=== PATIENT | male | born 1945 | race Caucasian/White ===

== ENCOUNTER 2016-06-09 19:07 | Emergency (ER) | payer MEDICARE, OTHER ==
--- OUTSIDE RECORDS SUMMARY | 2016-06-09 20:48 | XMS REPORT | Continuity of Care Document ---
:1945 Author Organization [facility] ([facility]) Address [address] [place] [address] Phone [phone] Care Team Providers Name Role Phone Ramsesgisela Chad Cornelius Primary Care Provider [phone] Source Comments This disclosure is being made pursuant to the Care Everywhere program, applicable federal and state laws, and may not contain all informaitonavailable regarding this patient.[facility] ([facility]) Active Allergies and Adverse Reactions Not on File Current Medications Not on file Active Problems Not on file Social History Tobacco Use Types Packs/Day Years Used Date Never Assessed Plan of Care Health Maintenance Due Date Last Done Comments HCV Screening 1945 Hepatitis B Vaccine (1 of 3 - Primary Series) 1945 Tdap Vaccine 1956 Lipid Disorder Screening 07/01/1963 Td Vaccine 07/01/1963 Colonoscopy 1995 Prostate Cancer Screening 07/01/1995 Zoster Vaccine 2005 Pneumococcal Vaccine (1 of 2 - PCV13) 2010 Influenza Vaccine: Seasonal (#1) 11/12/2015 Results from Last 3 Months Not on file
--- NOTE | 2016-06-09 20:53 | ERNOTE ---
ER Male HPI Stated Complaint: ARTIFICIAL SPHINCTER NOT WORKING ER Male: urinary retention Time Seen by Provider: 06/09/16 20:35 Source: patient Exam Limitations: no limitations Immunizations: IMMUNIZATION HX Immunizations Up to Date Yes History of Influenza Vaccine Yes Hx Pneumococcal Vaccination Yes Allergies/Adverse Reactions: Allergies No Known Allergies Allergy (Verified 04/05/16 21:24) Home Medications: HOME MEDICATIONS Albuterol Sulfate [Ventolin Hfa] 2 puff IH Q4H PRN 11/14/13 [Last Taken Unknown] Allopurinol [Zyloprim] 100 mg PO DAILY 11/14/13 [Last Taken 12/11/14 21:00] Aspirin [Aspirin Enteric Coated] 81 mg PO HS 11/14/13 [Last Taken 12/11/14 21:00 ] Fluticasone/Salmeterol [Advair 250-50 Diskus] 1 puff IH BID 11/14/13 [Last Taken 12/12/14 09:00] Gabapentin [Neurontin] 600 mg PO BID 11/14/13 [Last Taken 12/11/14 21:00] Glimepiride [Amaryl] 2 mg PO BID 11/14/13 [Last Taken 12/11/14 21:00] Metoprolol Succinate [Toprol Xl] 50 mg PO DAILY 11/14/13 [Last Taken 12/11/14 21 :00] Simvastatin [Zocor] 10 mg PO HS 11/14/13 [Last Taken 12/11/14 21:00] Zolpidem Tartrate [Ambien] 10 mg PO HS PRN 11/14/13 [Last Taken Unknown] Albuterol Sulfate/Ipratropium [Duoneb 2.5-0.5MG/3ML Soln] 3 ml IH Q4H PRN [Last Taken 12/12/14 09:00] Blood Sugar Diagnostic, Drum [Accu-Chek Compact] 1 each MC DAILY 04/25/15 [Last Taken Unknown] Escitalopram Oxalate [Lexapro] 10 mg PO DAILY 04/25/15 [Last Taken Unknown] Nitroglycerin [Nitrostat] 0.4 mg SL Q5MIN PRN 04/25/15 [Last Taken Unknown] [place]-3 Fatty Acids/Fish Oil [Fish Oil 1,000 mg Capsule] 1 each PO DAILY [Last Taken Unknown] Oxybutynin Chloride [Ditropan] 5 mg PO QID 04/25/15 [Last Taken Unknown] Lisinopril [Zestril] 10 mg PO HS 12/27/15 [Last Taken Unknown] Melatonin 10 mg PO HS 12/27/15 [Last Taken Unknown] Omeprazole 40 mg PO DAILY 12/27/15 [Last Taken Unknown] Oxycodone HCl/Acetaminophen [Percocet 5-325 mg Tablet] 1 each PO Q4H PRN #30 tablet 12/27/15 [Last Taken Unknown] Doxycycline Hyclate [Vibratab] 100 mg PO BID #20 tab 06/10/16 [Last Taken Unknown] - History of Present Illness Narrative: Pt states he is unable to urinate. He has an artificial urinary sphincter, and at the [facility] last week they taught him how to turn it off and on. He has tried to turn it off but has been unable to urinate all day Timing: Present: constant, getting worse Quality: Present: moderate Onset Location: Present: suprapubic Associated Symptoms: Absent: fever/chills, nausea, vomiting Review of Systems - Review of Systems Constitutional: Present: no symptoms reported EYE: Present: no symptoms reported ENT: Present: no symptoms reported Respiratory: Present: no symptoms reported Cardiology: Present: no symptoms reported Gastrointestinal/Abdominal: Present: See HPI, diarrhea, abdominal pain, other - left flank pain Genitourinary: Present: See HPI, decreased urinary output Musculoskeletal: Present: no symptoms reported Skin: Present: no symptoms reported Neurological: Present: no symptoms reported Endocrine: Present: no symptoms reported Hematologic/Lymphatic: Present: no symptoms reported Psych: Present: no symptoms reported - Patient's Past Medical History Patient History - Medical: Chronic Pain, Diabetes Type 2, Renal Disease, Other Patient History - Cardiac/Respiratory: Bronchitis, Coronary Heart Disease, COPD , Hypertension Patient History - Cancer: Prostate Patient History - Surgical Procedures: Amputation, Colon Resection, Colonoscopy , Total Knee Replacement, Other Patient History - Other: None - Family History Father Family History - Medical: Family History - Cardiac/Respiratory: CVA/Stroke Mother Family History - Medical: , Diabetes Type 2 Insulin Dependent Family History - Cardiac/Respiratory: History Unknown - Social History Living Situations: home Abuse History: No History of abuse Psych History: No pertinent hx Smoking Status: Former smoker Have you smoked in the past 12 months: No Alcohol Use: none Drug Use: none - Immunizations Immunizations Up to Date: Yes Hx Pneumococcal Vaccination: Yes History of Influenza Vaccine: Yes Physical Exam - Physical Exam General Appearance: Present: wd/wn, alert, no apparent distress Ears, Nose, Throat: Present: hearing grossly normal Respiratory: Present: no respiratory distress, no accessory muscle use Gastrointestinal/Abdominal: Present: normal bowel sounds, tenderness - mild tenderness of LLQ and suprapubic area. Bladder is not appreciated Male Genitals Exam: Present: epididymal tenderness - on the left Back Exam: Present: CVA tenderness (L) Neurological Exam: Present: alert, oriented, normal mood/affect Skin Exam: Present: normal color, warm/dry ED Progress - Results and Orders Patient's Lab Results:: I have reviewed the patient's lab results. Results and Orders: Laboratory Tests 06/09/16 06/09/16 06/09/16 20:50 20:50 23:10 WBC 6.8 Hgb 10.7 L Hct 33.9 L Plt Count 340 Sodium 143 H Potassium 4.2 Chloride 108 H Carbon Dioxide 25.3 Anion Gap 13.9 H BUN 33 H Creatinine 1.86 H Est GFR (Non-Af Amer) 38 L BUN/Creatinine Ratio 17.7 Random Glucose 98 Calcium 9.4 Urine Color Yellow Urine Appearance Clear Urine pH 5.5 Ur Specific Granite >=1.030 Urine Protein 30 H Urine Glucose (UA) Negative Urine Ketones Negative Urine Blood 250 H Urine Nitrate Negative Urine Bilirubin Negative Prot Sulfosalicylic Acd QNS Urine Urobilinogen Normal Ur Leukocyte Esterase 25 H Urine RBC 5-10 H Urine WBC 5-10 H Ur Epithelial Cells 0-5 Other Crystals Moderate - 2+ H Urine Bacteria 1+ H Hyaline Casts 0-5 H Urine Culture Comments Culture to follow - Vital Signs Patient's Vital Signs:: I have reviewed the patient's vital signs. Vital Signs: Vital Signs 06/09/16 19:17 Temperature 37.3 C Pulse Rate 97 Respiratory 18 Rate Blood Pressure 123/75 O2 Sat by Pulse 99 Oximetry - Progress/Reassessment Chief Complaint: Genitourinary Problem Progress:: Unchanged - bladder scan showed no urine, Nursing found depends to be very full of urine upon inserting catheter. minimal urine in catheter Departure Clinical Impression: Epididymitis - Departure Disposition: Home Follow Up Needed Condition: Good Instructions: Epididymitis Referrals: Marisa Mejia MD [Primary Care Provider] - Prescriptions: Doxycycline Hyclate [Vibratab] 100 mg PO BID #20 tab
[2016-06-09 21:14] LABS: BUN/Creatinine Ratio 17.7 (9.0-21.6); Carbon Dioxide 25.3 mmol/L (24-32.6); Estimated Creat Clear 39.4; Potassium 4.2 mmol/L (3.4-4.6)
[2016-06-09 21:15] LABS: Anion Gap 13.9 mmol/L (6.8-13.8); Calcium * 9.4 mg/dL (7.9-10.9)
[2016-06-09 21:19] LABS: Hematocrit 33.9 % (42.0-52.0); Hemoglobin 10.7 gm/dL (13.5-18.0); Mean Cell Volume 89.9 fl (78-100); Mean Corpuscular Hemoglobin 28.4 pg (27-31); Mean Corpuscular Hgb Conc 31.6 g/dl (32-36); Mean Platelet Volume 9.3 fl (6.0-9.5); Neutrophil # 5.1 K/mm3 (1.3-6.0); Neutrophil % 73.9 % (42-75.0); Platelet Count 340 K/mm3 (150-450); Red Blood Count 3.77 M/mm3 (4.7-6.0); Red Cell Distribution Width 13.6 % (11.5-14.0); White Blood Count 6.8 K/mm3 (4.0-10.5)
[2016-06-09 23:19] LABS: Urine Bilirubin Negative (NEGATIVE); Urine Blood 250 /ul (NEGATIVE); Urine Ketone Negative (NEGATIVE); Urine Nitrite Negative (NEGATIVE); Urine Protein 30 mg/dL (NEGATIVE); Urine Specific Gravity >=1.030 SP.GR. (1.005-1.030); Urine Urobilinogen Normal (NORMAL); Urine pH 5.5 pH (5.0-7.0)
[2016-06-09 23:31] LABS: Urine Appearance Clear; Urine Bacteria 1+; Urine Color Yellow
[2016-06-09 23:32] LABS: Urine Hyaline Cast 0-5 /LPF; Urine Other Crystal Moderate - 2+ /hpf
[2016-06-10 01:07] VITALS: BP 140/63
== END 2016-06-10 00:45 | disposition home or self-care (01) ==
LOC: ER 19:07
DX: N45.1 Epididymitis (principal); G89.29 Other chronic pain; E11.9 Type 2 diabetes mellitus without complications; I10 Essential (primary) hypertension; I25.2 Old myocardial infarction; J44.9 Chronic obstructive pulmonary disease, unspecified

== ENCOUNTER 2016-07-11 15:43 | Emergency (ER) | payer MEDICARE, OTHER ==
[2016-07-11 16:29] LABS: Albumin * 3.4 gm/dl (3.4-5.0); Anion Gap 19.2 mmol/L (6.8-13.8); BUN/Creatinine Ratio 17.5 (9.0-21.6); Bilirubin, Total 0.6 mg/dL (0.0-1.1); Ca. Corrected For Albumin 9.1 mg/dL (8.4-10.2); Calcium * 8.9 mg/dL (7.9-10.9); Carbon Dioxide 20.3 mmol/L (24-32.6); Hematocrit 34.5 % (42.0-52.0); Hemoglobin 11.2 gm/dL (13.5-18.0); Mean Cell Volume 89.1 fl (78-100); Mean Corpuscular Hemoglobin 28.9 pg (27-31); Mean Corpuscular Hgb Conc 32.5 g/dl (32-36); Mean Platelet Volume 9.8 fl (6.0-9.5); Neutrophil # 7.1 K/mm3 (1.3-6.0); Neutrophil % 66.6 % (42-75.0); Platelet Count 420 K/mm3 (150-450); Potassium 4.5 mmol/L (3.4-4.6); Red Blood Count 3.87 M/mm3 (4.7-6.0); Red Cell Distribution Width 14.6 % (11.5-14.0); Total Protein 7.5 gm/dL (6.2-8.2); Uric Acid 6.5 mg/dL (2.6-7.2); White Blood Count 10.7 K/mm3 (4.0-10.5)
--- OUTSIDE RECORDS SUMMARY | 2016-07-11 16:33 | XMS REPORT | Continuity of Care Document ---
:1945 Author Organization [facility] ([facility]) Address [address] [place] [address] Phone [phone] Care Team Providers Name Role Phone RamsesChad higgins Primary Care Provider [phone] Source Comments This disclosure is being made pursuant to the Care Everywhere program, applicable federal and state laws, and may not contain all informaitonavailable regarding this patient.[facility] ([facility]) Active Allergies and Adverse Reactions Not [...]
[2016-07-11] MEDS ORDERED: traMADol HCL 50 MG TABLET PO ONE (17:21)
[2016-07-11 17:33] LABS: Body Fluid Appearance CLOUDY (CLEAR); Body Fluid Color YELLOW (COLORLESS); Body Fluid WBC 6873 /uL (0-1000)
--- NOTE | 2016-07-11 19:11 | ERNOTE ---
Lower Extremity HPI - General Lower Extremities Pain: knee: right Time Seen by Provider: 07/11/16 15:52 Source: patient - Immun/Allergies/Home Medications Immunizations: IMMUNIZATION HX Immunizations Up to Date Yes History of Influenza Vaccine Yes Hx Pneumococcal Vaccination Yes Allergies/Adverse Reactions: Allergies Allergy/AdvReac Type Severity Reaction Status Date / Time No Known Allergies Allergy Verified 07/11/16 15:50 Home Medications: HOME MEDICATIONS Albuterol Sulfate [Ventolin Hfa] 2 puff IH Q4H PRN 11/14/13 [Last Taken Unknown] Allopurinol [Zyloprim] 100 mg PO DAILY 11/14/13 [Last Taken 12/11/14 21:00] Aspirin [Aspirin Enteric Coated] 81 mg PO HS 11/14/13 [Last Taken 12/11/14 21:00 ] Fluticasone/Salmeterol [Advair 250-50 Diskus] 1 puff IH BID 11/14/13 [Last Taken 12/12/14 09:00] Gabapentin [Neurontin] 600 mg PO BID 11/14/13 [Last Taken 12/11/14 21:00] Glimepiride [Amaryl] 2 mg PO BID 11/14/13 [Last Taken 12/11/14 21:00] Metoprolol Succinate [Toprol Xl] 50 mg PO DAILY 11/14/13 [Last Taken 12/11/14 21 :00] Simvastatin [Zocor] 10 mg PO HS 11/14/13 [Last Taken 12/11/14 21:00] Zolpidem Tartrate [Ambien] 10 mg PO HS PRN 11/14/13 [Last Taken Unknown] Albuterol Sulfate/Ipratropium [Duoneb 2.5-0.5MG/3ML Soln] 3 ml IH Q4H PRN [Last Taken 12/12/14 09:00] Blood Sugar Diagnostic, Drum [Accu-Chek Compact] 1 each MC DAILY 04/25/15 [Last Taken Unknown] Escitalopram Oxalate [Lexapro] 10 mg PO DAILY 04/25/15 [Last Taken Unknown] Nitroglycerin [Nitrostat] 0.4 mg SL Q5MIN PRN 04/25/15 [Last Taken Unknown] [place]-3 Fatty Acids/Fish Oil [Fish Oil 1,000 mg Capsule] 1 each PO DAILY [Last Taken Unknown] Oxybutynin Chloride [Ditropan] 5 mg PO QID 04/25/15 [Last Taken Unknown] Lisinopril [Zestril] 10 mg PO HS 12/27/15 [Last Taken Unknown] Melatonin 10 mg PO HS 12/27/15 [Last Taken Unknown] Omeprazole 40 mg PO DAILY 12/27/15 [Last Taken Unknown] oxyCODONE HCL/ACETAMINOPHEN [Percocet 5-325 mg Tablet] 1 each PO Q4H PRN #30 tablet 12/27/15 [Last Taken Unknown] Doxycycline Hyclate [Vibratab] 100 mg PO BID #20 tab 06/10/16 [Last Taken Unknown] Meloxicam 7.5 mg PO DAILY #14 tablet 07/11/16 [Last Taken Unknown] Prednisone 10 mg PO DAILY 07/11/16 [Last Taken Unknown] Tramadol HCl [Rybix Odt] 50 mg PO TID PRN 07/11/16 [Last Taken Unknown] - History of Present Illness Narrative: 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 Right knee has been tapped in the past with fair amount of fluid having been removed that under microscopy examination revealed uric acid crystals. Occurred: other - chronic Method of Injury: Reports: no apparent injury Review of Systems - Review of Systems Constitutional: Present: See HPI EYE: Present: no symptoms reported ENT: Present: no symptoms reported Respiratory: Present: no symptoms reported Cardiology: Present: no symptoms reported Gastrointestinal/Abdominal: Present: no symptoms reported Genitourinary: Present: no symptoms reported Musculoskeletal: Present: See HPI, joint pain, joint swelling Skin: Present: no symptoms reported Neurological: Present: no symptoms reported Endocrine: Present: no symptoms reported Hematologic/Lymphatic: Present: no symptoms reported Psych: Present: no symptoms reported - Patient's Past Medical History Patient History - Medical: Chronic Pain, Diabetes Type 2, Renal Disease, Other - gouty arthritis Patient History - Cardiac/Respiratory: Bronchitis, Coronary Heart Disease, COPD , Hypertension Patient History - Cancer: Prostate Patient History - Surgical Procedures: Amputation, Colon Resection, Colonoscopy , Total Knee Replacement, Other Patient History - Other: None - Family History Father Family History - Medical: Family History - Cardiac/Respiratory: CVA/Stroke Mother Family History - Medical: , Diabetes Type 2 Insulin Dependent Family History - Cardiac/Respiratory: History Unknown - Social History Living Situations: home Abuse History: No History of abuse Psych History: No pertinent hx Smoking Status: Never smoker Alcohol Use: none Drug Use: none - Immunizations Immunizations Up to Date: Yes Hx Pneumococcal Vaccination: Yes History of Influenza Vaccine: Yes Physical Exam - Physical Exam General Appearance: Present: wd/wn, alert, moderate distress Eye Exam: Normal inspection: bilateral, PERRL: bilateral Ears, Nose, Throat: Present: normal ENT inspection, H, normal pharynx Neck: Present: normal inspection, nontender Respiratory: Present: no respiratory distress, normal breath sounds, no accessory muscle use, chest nontender, lungs clear Cardiovascular/Chest: Present: regular rate, rhythm, no murmur, normal peripheral pulses Gastrointestinal/Abdominal: Present: normal bowel sounds, nontender, nondistended, soft, no organomegaly Rectal Exam: Present: deferred Back Exam: Present: normal inspection, normal range of motion Extremity Exam: Present: decreased range of motion, joint swelling, other - right knee tender to palpation Neurological Exam: Present: alert, oriented, normal mood/affect Skin Exam: Present: normal color, warm/dry Lymphatic Exam: Present: no adenopathy ED Progress - Results and Orders Patient's Lab Results:: I have reviewed the patient's lab results. - Vital Signs Patient's Vital Signs:: I have reviewed the patient's vital signs. Vital Signs: Vital Signs 07/11/16 15:48 Temperature 36.8 C Pulse Rate 89 Respiratory 18 Rate Blood Pressure 119/58 O2 Sat by Pulse 98 Oximetry - Progress/Reassessment Chief Complaint: Lower Extremity Pain/ Injury Progress:: Improved Progress Note-Subjective: 07/11/16 19:04 Approximately 10 mL of yellowish somewhat highly viscus fluid was removed from the right knee which revealed 68,000+ white cells 3000 red cells 77% neutrophils and 23% lymphocytes. Specific case with Dr. Manning he stated this is indeed consistent with a gouty arthritis. Recommends we start at least a low dose nonsteroidal to go along with the Allopurinol to help minimize the occurrence of the knee effusion. As the patient has renal insufficiency we'll try low-dose meloxicam 7.5 mg have him see Dr. Mejia next week and will only give him a week's worth so she can assess his kidney status at that point. Departure Clinical Impression: Acute gouty arthritis - Departure Disposition: Home self-care Condition: Good Instructions: Gout, [id number] Referrals: Marisa Mejia MD [Primary Care Provider] - Prescriptions: Meloxicam 7.5 mg PO DAILY #14 tablet
[2016-07-11 19:25] VITALS: BP 133/61
== END 2016-07-11 19:25 | disposition home or self-care (01) ==
LOC: ER 15:43
PROC: 0S9C3ZX Drainage of Right Knee Joint, Percutaneous Approach, Diagnostic (ICD-10-PCS; principal; 2016-07-11)
DX: M10.9 Gout, unspecified (principal); E11.9 Type 2 diabetes mellitus without complications; I10 Essential (primary) hypertension; J44.9 Chronic obstructive pulmonary disease, unspecified; Z85.46 Personal history of malignant neoplasm of prostate; Z96.659 Presence of unspecified artificial knee joint

== ENCOUNTER 2016-08-11 17:59 | Emergency (ER) | payer MEDICARE, OTHER ==
[2016-08-11] MEDS ORDERED: ALBUTEROL SULFATE/IPRATROPIUM 3 ML NEBU IH ONE ×2 (18:27→18:46)
[2016-08-11] MEDS ORDERED: predniSONE 20 MG TABLET PO ONE (18:27)
--- NOTE | 2016-08-11 18:28 | ERNOTE ---
Medical Problem HPI - General Chief Complaint: General Assessment Time Seen by Provider: 08/11/16 18:10 Source: patient, family Exam Limitations: no limitations - Immun/Allergies/Home Medications Immunizations: IMMUNIZATION HX Immunizations Up to Date Yes History of Influenza Vaccine Yes Hx Pneumococcal Vaccination Yes Allergies/Adverse Reactions: Allergies No Known Allergies Allergy (Verified 08/11/16 18:20) Home Medications: HOME MEDICATIONS Albuterol Sulfate [Ventolin Hfa] 2 puff IH Q4H PRN 11/14/13 [Last Taken Unknown] Allopurinol [Zyloprim] 100 mg PO DAILY 11/14/13 [Last Taken 12/11/14 21:00] Aspirin [Aspirin Enteric Coated] 81 mg PO HS 11/14/13 [Last Taken 12/11/14 21:00 ] Fluticasone/Salmeterol [Advair 250-50 Diskus] 1 puff IH BID 11/14/13 [Last Taken 12/12/14 09:00] Gabapentin [Neurontin] 600 mg PO BID 11/14/13 [Last Taken 12/11/14 21:00] Glimepiride [Amaryl] 2 mg PO BID 11/14/13 [Last Taken 12/11/14 21:00] Metoprolol Succinate [Toprol Xl] 50 mg PO DAILY 11/14/13 [Last Taken 12/11/14 21 :00] Simvastatin [Zocor] 10 mg PO HS 11/14/13 [Last Taken 12/11/14 21:00] Zolpidem Tartrate [Ambien] 10 mg PO HS PRN 11/14/13 [Last Taken Unknown] Albuterol Sulfate/Ipratropium [Duoneb 2.5-0.5MG/3ML Soln] 3 ml IH Q4H PRN [Last Taken 12/12/14 09:00] Blood Sugar Diagnostic, Drum [Accu-Chek Compact] 1 each MC DAILY 04/25/15 [Last Taken Unknown] Escitalopram Oxalate [Lexapro] 10 mg PO DAILY 04/25/15 [Last Taken Unknown] Nitroglycerin [Nitrostat] 0.4 mg SL Q5MIN PRN 04/25/15 [Last Taken Unknown] [place]-3 Fatty Acids/Fish Oil [Fish Oil 1,000 mg Capsule] 1 each PO DAILY [Last Taken Unknown] Oxybutynin Chloride [Ditropan] 5 mg PO QID 04/25/15 [Last Taken Unknown] Lisinopril [Zestril] 10 mg PO HS 12/27/15 [Last Taken Unknown] Melatonin 10 mg PO HS 12/27/15 [Last Taken Unknown] Omeprazole 40 mg PO DAILY 12/27/15 [Last Taken Unknown] oxyCODONE HCL/ACETAMINOPHEN [Percocet 5-325 mg Tablet] 1 each PO Q4H PRN #30 tablet 12/27/15 [Last Taken Unknown] Doxycycline Hyclate [Vibratab] 100 mg PO BID #20 tab 06/10/16 [Last Taken Unknown] Meloxicam 7.5 mg PO DAILY #14 tablet 07/11/16 [Last Taken Unknown] Prednisone 10 mg PO DAILY 07/11/16 [Last Taken Unknown] Tramadol HCl [Rybix Odt] 50 mg PO TID PRN 07/11/16 [Last Taken Unknown] traMADol HCL [Ultram] 50 mg PO QID PRN #20 tablet 07/11/16 [Last Taken Unknown] Diphenoxylate HCl/Atropine [Lomotil Tablet] 1 each PO BID #14 tablet 08/11/16 [ Last Taken Unknown] - History of Present History Narrative: Patient presents with a cough and congestion, he says he just feels crappy , he was also noted to have some low blood pressure at physical therapy although for us now is currently well within the normal range. Timing: constant Severity: mild Review of Systems - Review of Systems Constitutional: Present: See HPI EYE: Present: no symptoms reported ENT: Present: no symptoms reported Respiratory: Present: shortness of breath, cough Cardiology: Present: no symptoms reported Gastrointestinal/Abdominal: Present: no symptoms reported Genitourinary: Present: no symptoms reported Musculoskeletal: Present: no symptoms reported Skin: Present: no symptoms reported Neurological: Present: no symptoms reported Endocrine: Present: no symptoms reported Hematologic/Lymphatic: Present: no symptoms reported Psych: Present: no symptoms reported - Patient's Past Medical History Patient History - Medical: Chronic Pain, Diabetes Type 2, Renal Disease, Other Patient History - Cardiac/Respiratory: Bronchitis, Coronary Heart Disease, COPD , Hypertension Patient History - Cancer: Prostate Patient History - Surgical Procedures: Amputation, Colon Resection, Colonoscopy , Total Knee Replacement, Other Patient History - Other: None - Family History Father Family History - Medical: Family History - Cardiac/Respiratory: CVA/Stroke Mother Family History - Medical: , Diabetes Type 2 Insulin Dependent Family History - Cardiac/Respiratory: History Unknown - Social History Living Situations: home Abuse History: No History of abuse Psych History: No pertinent hx Smoking Status: Former smoker Alcohol Use: none Drug Use: none - Immunizations Immunizations Up to Date: Yes Hx Pneumococcal Vaccination: Yes History of Influenza Vaccine: Yes Physical Exam - Physical Exam General Appearance: Present: wd/wn, alert, no apparent distress Eye Exam: Normal inspection: bilateral, PERRL: bilateral Ears, Nose, Throat: Present: normal ENT inspection, H, normal pharynx Neck: Present: normal inspection, nontender Respiratory: Present: no accessory muscle use, chest nontender, rales, wheezing , other - coarse breath sounds Cardiovascular/Chest: Present: regular rate, rhythm, no murmur, normal peripheral pulses Gastrointestinal/Abdominal: Present: normal bowel sounds, nontender, nondistended, soft, no organomegaly Rectal Exam: Present: deferred Back Exam: Present: normal inspection, normal range of motion Extremity Exam: Present: normal inspection, non-tender, no edema, normal range of motion Neurological Exam: Present: alert, oriented, normal mood/affect Skin Exam: Present: normal color, warm/dry Lymphatic Exam: Present: no adenopathy ED Progress - Results and Orders Patient's Lab Results:: I have reviewed the patient's lab results. - Vital Signs Patient's Vital Signs:: I have reviewed the patient's vital signs. Vital Signs: Vital Signs 08/11/16 18:15 Temperature 36.5 C Pulse Rate 92 Respiratory 18 Rate Blood Pressure 136/63 O2 Sat by Pulse 96 Oximetry - X-Ray X-Ray #1 X-Ray: chest Interpretation: Reviewed by me - Progress/Reassessment Chief Complaint: General Assessment Plan - Plan Plan: Pt has had refractory diarrhea for about 3-4 months now. He has see his FP and been checked for c. diff, which was negative. He has been on Imodium for over a month without success. He states his urine output has been dropping precipitously for nearly 2 months now. I suspect without more intensive treatment that he will go into lucretia renal failure. He was given a liter of NS and a dose of Lomotil in the ED. He might benefit from a GI consult. Departure - Departure Clinical Impression: Chronic diarrhea, CKD (chronic kidney disease), stage III COPD (chronic obstructive pulmonary disease) Qualifiers: COPD type: unspecified COPD Qualified Code(s): J44.9 - Chronic obstructive pulmonary disease, unspecified Disposition: Home self-care Condition: Fair Instructions: Chronic Obstructive Pulmonary Disease Exacerbation, [id number] , Chronic Diarrhea, Chronic Kidney Disease, [id number] Referrals: Marisa Mejia MD [Primary Care Provider] - Prescriptions: Diphenoxylate HCl/Atropine [Lomotil Tablet] 1 each PO BID #14 tablet
[2016-08-11] MEDS ORDERED: predniSONE 20 MG TABLET ONE (18:46)
--- OUTSIDE RECORDS SUMMARY | 2016-08-11 19:10 | XMS REPORT | Continuity of Care Document ---
:1945 Author Organization [facility] ([facility]) Address [address] [place] [address] Phone [phone] Care Team Providers Name Role Phone RamsesChad higgins Primary Care Provider [phone] Source Comments This disclosure is being made pursuant to the Care Everywhere program, applicable federal and state laws, and may not contain all informaitonavailable regarding this patient.[facility] ([facility]) Active Allergies and Adverse Reactions Not [...]
[2016-08-11 19:21] LABS: Hematocrit 32.8 % (42.0-52.0); Hemoglobin 10.5 gm/dL (13.5-18.0); Mean Cell Volume 88.9 fl (78-100); Mean Corpuscular Hemoglobin 28.5 pg (27-31); Mean Platelet Volume 9.4 fl (6.0-9.5); Neutrophil # 5.5 K/mm3 (1.3-6.0); Neutrophil % 68.1 % (42-75.0); Platelet Count 374 K/mm3 (150-450); Red Blood Count 3.69 M/mm3 (4.7-6.0); Red Cell Distribution Width 14.6 % (11.5-14.0); White Blood Count 8.1 K/mm3 (4.0-10.5)
[2016-08-11 19:38] LABS: ALT 25 U/L (19-67); AST 22 U/L (0-48); Albumin * 3.5 gm/dl (3.4-5.0); Alkaline Phosphatase * 118 U/L (50-170); Anion Gap 18.5 mmol/L (6.8-13.8); Bilirubin, Total 0.4 mg/dL (0.0-1.1); Blood Urea Nitrogen 44 mg/dL (6-23); Ca. Corrected For Albumin 9.5 mg/dL (8.4-10.2); Calcium * 9.4 mg/dL (7.9-10.9); Carbon Dioxide 22.2 mmol/L (24-32.6); Chloride 105 mmol/L (97-106); Glucose * 182 mg/dL (70-110); Magnesium 1.9 mg/dL (1.2-2.8); Potassium 4.7 mmol/L (3.4-4.6); Sodium 141 mmol/L (132-142); Total Protein 7.9 gm/dL (6.2-8.2)
[2016-08-11 19:41] LABS: Troponin I Less than 0.017 ng/ml (0.00-0.10)
[2016-08-11] MEDS ORDERED: NORMAL SALINE 1,000 ML in NORMAL SALINE 1,000 ML IV ONE (19:47)
[2016-08-11] MEDS ORDERED: DIPHENOXYLATE HCL/ATROP SULF 2.5 MG TABLET PO ONE (19:48)
[2016-08-11 20:58] VITALS: BP 132/57
== END 2016-08-11 20:55 | disposition home or self-care (01) ==
LOC: ER 17:59
DX: K52.9 Noninfective gastroenteritis and colitis, unspecified (principal); N18.3 Chronic kidney disease, stage 3 (moderate); J44.9 Chronic obstructive pulmonary disease, unspecified; Z87.891 Personal history of nicotine dependence